=== PATIENT | female | born 1980 | race Caucasian/White ===

== ENCOUNTER 2017-03-27 10:32 | Emergency (ER) | payer OTHER ==
[~2017-03-27] VITALS: Ht 160 cm; Wt 75.0 kg
[2017-03-27 10:39] VITALS: TEMP 36.7; Ht 160 cm; Wt 75.0 kg
[2017-03-27] MEDS ORDERED: SODIUM CHLORIDE 0.9% 1000ML 1,000 ML IV STA (10:44)
--- NOTE | 2017-03-27 11:01 | EMERGENCY ROOM VISIT NOTE ---
History Report prepared by Arelis: Mirza Bhakta Under the Supervision of: Dr. Khalif Crowder M.D. First contact with patient: 10:44 Chief Complaint: SEIZURE Stated Complaint: POSSIBLE SEIZURE,BLACK OUT Nursing Triage Summary: last night had some alcohol and her friends that she was with thinks she had a sz and hit her elbow and wants checked out has headache History of Present Illness The patient is a 37 year old female who presents to the Emergency Room with complaints of a possible seizure that occurred last night. She rates her pain a 4/10 in severity. At this time, the patient was drinking alcohol with some of her friends when she hit her elbow on a chair. She notes that there was a lot of pain, so she sat down. Per her friend, the patient slumped back in her chair , her eyes began to "bounce" and her arms were hyperextended. After a couple of seconds she was back to normal. She denies any history of seizures in her past or her family.She denies any loss of consciousness. Source of History: patient Onset: last night Position: other (Global) Symptom Intensity: mild Quality: other (Possible seizure) Timing: resolved Associated Symptoms: No LOC Note: She is having some right elbow pain. Her seizure symptoms have resolved at this time. Review of Systems See HPI for pertinent positives & negatives. A total of 10 systems reviewed and were otherwise negative. Past Medical & Surgical Surgical Problems: (1) Previous section Family History Patient reports no known family medical history. Social History Smoking Status: Current Every Day Smoker Smokeless Tobacco Use: No Alcohol Use: occasionally Drug Use: none Marital Status: Housing Status: lives with family Occupation Status: employed Current/Historical Medications No Active Prescriptions or Reported Meds Allergies Coded Allergies: No Known Allergies (Verified , 03/27/17) Physical Exam Vital Signs Date Time Temp Pulse Resp B/P (MAP) Pulse Ox O2 Delivery O2 Flow Rate FiO2 03/27/17 12:03 65 18 119/87 99 03/27/17 11:14 Room Air 03/27/17 11:14 Room Air 03/27/17 11:05 64 03/27/17 10:39 36.7 77 18 126/83 99 Room Air Physical Exam GENERAL: Patient is a healthy-appearing well-nourished female HEAD: Normocephalic atraumatic EYES: Ocular movements intact pupils equal and react to light OROPHARYNX mucous membranes are moist no exudates present no erythema or edema present NECK: Supple no nuchal rigidity. No evidence of meningitis or encephalitis on exam. CHEST: Good equal expansion LUNGS: Clear and equal to auscultation CARDIAC: Normal S1 and S2 ABDOMEN: Soft nontender no guarding BACK: No CVA tenderness EXTREMITIES: No pain upon palpation normal muscle strength in all groups no clubbing cyanosis or edema. Good ROM of right elbow. NEURO: Patient is following commands and answering questions appropriately. Alert and oriented x3 Cranial Nerves 2-12 grossly intact Medical Decision & Procedures ER Provider Diagnostic Interpretation: Radiology results as stated below per my review and radiologist interpretation: HEAD CT NONCONTRAST CT DOSE: 537.48 mGy.cm HISTORY: Seizures Pt c/o seizure like activity TECHNIQUE: Multiaxial CT images of the head were performed without the use of intravenous contrast. Comparison: None. Findings: The paranasal sinuses and mastoid air cells are clear. The calvarium and skull base are intact. The ventricles and sulci are within normal limits. There is no mass, hematoma, midline shift, or acute infarct. Impression: No acute intracranial abnormality. Electronically signed by: Tanner Dumont M.D. 03/27/2017 11:43 AM Dictated Date/Time: 03/27/2017 11:42 AM Laboratory Results 03/27/17 11:10 Red Blood Count 4.72, Mean Corpuscular Volume 91.3, Mean Corpuscular Hemoglobin 31.1, Mean Corpuscular Hemoglobin Concent 34.1, Mean Platelet Volume 10.0, Neutrophils (%) (Auto) 58.2, Lymphocytes (%) (Auto) 29.6, Monocytes (%) (Auto) 10.6, Eosinophils (%) (Auto) 1.1, Basophils (%) (Auto) 0.1, Neutrophils # (Auto ) 4.65, Lymphocytes # (Auto) 2.37, Monocytes # (Auto) 0.85, Eosinophils # (Auto ) 0.09, Basophils # (Auto) 0.01 03/27/17 11:10 Test 03/27/17 11:10 03/27/17 11:12 03/27/17 11:30 White Blood Count 8.00 K/uL (4.8-10.8) Red Blood Count 4.72 M/uL (4.2-5.4) Hemoglobin 14.7 g/dL (12.0-16.0) Hematocrit 43.1 % (37-47) Mean Corpuscular Volume 91.3 fL (80-100) Mean Corpuscular Hemoglobin 31.1 pg (25-34) Mean Corpuscular Hemoglobin Concent 34.1 g/dl (32-36) Platelet Count 227 K/uL (130-400) Mean Platelet Volume 10.0 fL (7.4-10.4) Neutrophils (%) (Auto) 58.2 % Lymphocytes (%) (Auto) 29.6 % Monocytes (%) (Auto) 10.6 % Eosinophils (%) (Auto) 1.1 % Basophils (%) (Auto) 0.1 % Neutrophils # (Auto) 4.65 K/uL (1.4-6.5) Lymphocytes # (Auto) 2.37 K/uL (1.2-3.4) Monocytes # (Auto) 0.85 K/uL (0.11-0.59) Eosinophils # (Auto) 0.09 K/uL (0-0.5) Basophils # (Auto) 0.01 K/uL (0-0.2) RDW Standard Deviation 44.4 fL (36.4-46.3) RDW Coefficient of Variation 13.3 % (11.5-14.5) Immature Granulocyte % (Auto) 0.4 % Immature Granulocyte # (Auto) 0.03 K/uL (0.00-0.02) Prothrombin Time 10.6 SECONDS (9.0-12.0) Prothromb Time International Ratio 1.0 (0.9-1.1) Activated Partial Thromboplast Time 26.1 SECONDS (21.0-31.0) Partial Thromboplastin Ratio 1.0 Anion Gap 5.0 mmol/L (3-11) Est Creatinine Clear Calc Drug Dose 120.5 ml/min Estimated GFR () 133.5 Estimated GFR (Non- 115.2 BUN/Creatinine Ratio 14.9 (10-20) Calcium Level 8.7 mg/dl (8.5-10.1) Phosphorus Level 2.4 mg/dl (2.5-4.9) Magnesium Level 2.3 mg/dl (1.8-2.4) Thyroid Stimulating Hormone (TSH) 2.780 uIu/ml (0.300-4.500) Human Chorionic Gonadotropin, Qual NEG (NEG) Ethyl Alcohol mg/dL < 3.0 mg/dl (0-3) Bedside Glucose 81 mg/dl (70-90) Urine Color YELLOW Urine Appearance CLEAR (CLEAR) Urine pH 7.5 (4.5-7.5) Urine Specific [place] 1.018 (1.000-1.030) Urine Protein NEG (NEG) Urine Glucose (UA) NEG (NEG) Urine Ketones NEG (NEG) Urine Occult Blood NEG (NEG) Urine Nitrite NEG (NEG) Urine Bilirubin NEG (NEG) Urine Urobilinogen NEG (NEG) Urine Leukocyte Esterase NEG (NEG) Labs reviewed by ED physician. Medications Administered Medications (Trade) Dose Ordered Sig/Som Route Start Time Stop Time Status Last Admin Dose Admin Sodium Chloride 1,000 ml @ 999 mls/hr Q1H1M STAT IV 03/27/17 10:44 03/27/17 11:44 DC 03/27/17 11:16 999 MLS/HR ED Course 1044: Past medical records reviewed. The patient was evaluated in room C1. A complete history and physical examination was performed. Ordered Sodium Chloride 1000 ml @ 999 mls/hr IV. 1205: Upon reexamination the patient is resting. I discussed results and treatment plan with the patient. She verbalizes agreement and understanding. The patient is ready for discharge. Medical Decision Differential diagnosis: Etiologies such as infection, hypoglycemia, electrolyte abnormalities, cardiac sources, intracerebral event, trauma, toxicologic, neurologic, as well as others were entertained. Medication Reconciliation: I attest that I have personally reviewed the patient' s current medication list Blood pressure Screening: Patient was found to have a slightly elevated blood pressure due to circumstances. I do not believe that the patient requires hypertension monitoring. This is a 37-year-old female who presents emergency department complaining of what sounds like a vasovagal episode along with possible seizure last evening. The patient has no history of seizures in the past. She was drinking 2 glasses of wine last night however reports that she does not normally drink. She has a normal CAT scan of the head normal white blood cell count normal red blood cell count. I do feel that the patient most likely suffered from a vasovagal episode however I stressed the need for follow-up with neurology especially if the symptoms recur. The patient is going to increase her fluid intake for the next 48 hours and return if symptoms worsen. Patient was in agreement with the treatment plan. Impression Primary Impression: Syncopal episodes Scribe Attestation The scribe's documentation has been prepared under my direction and personally reviewed by me in its entirety. I confirm that the note above accurately reflects all work, treatment, procedures, and medical decision making performed by me. Departure Information Dispostion Home / Self-Care Prescriptions No Active Prescriptions or Reported Meds Referrals Reinaldo Simms M.D. (PCP) Robert Sales M.D. Forms HOME CARE DOCUMENTATION FORM, IMPORTANT VISIT INFORMATION, School Instructions, Work Instructions Patient Instructions My [facility] Additional Instructions You were found to have an elevated blood pressure today (>120 sytolic or >90 diastolic). Per medicare guidelines, you need to follow up with this blood pressure screening with your Primary Care Physician (PCP). For a new PCP call [phone]. You have been examined and treated today on an emergency basis only. This is not a substitute for, or an effort to provide, complete comprehensive medical care. It is impossible to recognize and treat all injuries or illnesses in a single emergency department visit. It is therefore important that you follow up closely with Dr Simms. Call as soon as possible for an appointment. Thank you for your time and consideration. I look forward to speaking with you again soon. Please don't hesitate to call us if you have any questions. Problem Qualifiers Primary Impression: Syncopal episodes Syncope type: unspecified Qualified Codes: R55 - Syncope and collapse
[2017-03-27 11:21] LABS: BASO % 0.1 %; BASO ABS # 0.01 K/uL (0-0.2); COMPLETE YES; EOS % 1.1 %; HEMATOCRIT 43.1 % (37-47); IG% 0.4 %; LYMPH % 29.6 %; LYMPH ABS # 2.37 K/uL (1.2-3.4); MEAN CELL VOLUME 91.3 fL (80-100); MEAN CORPUSCULAR HEMOGLOBIN 31.1 pg (25-34); MEAN CORPUSCULAR HGB CONC 34.1 g/dl (32-36); MONO % 10.6 %; NEUT % 58.2 %; PLATELET COUNT 227 K/uL (130-400); RED BLOOD COUNT 4.72 M/uL (4.2-5.4)
[2017-03-27 11:30] LABS: PROTHROMBIN TIME (PATIENT) 10.6 SECONDS (9.0-12.0)
[2017-03-27 11:41] LABS: URINE APPEARANCE CLEAR (CLEAR); URINE BILIRUBIN NEG (NEG); URINE COLOR YELLOW; URINE NITRITE NEG (NEG); URINE PH 7.5 (4.5-7.5); URINE SPECIFIC GRAVITY 1.018 (1.000-1.030); UROBILINOGEN NEG (NEG)
[2017-03-27 11:42] LABS: BUN/CREATININE RATIO 14.9 (10-20); CALCIUM 8.7 mg/dl (8.5-10.1); CREATININE 0.62 mg/dl (0.60-1.20); MAGNESIUM 2.3 mg/dl (1.8-2.4)
--- NOTE | 2017-03-27 11:44 | DIAGNOSTIC IMAGING REPORT ---
HEAD CT NONCONTRAST CT DOSE: 537.48 mGy.cm HISTORY: Seizures Pt c/o seizure like activity TECHNIQUE: Multiaxial CT images of the head were performed without the use of intravenous contrast. Comparison: None. Findings: The paranasal sinuses and mastoid air cells are clear. The calvarium and skull base are intact. The ventricles and sulci are within normal limits. There is no mass, hematoma, midline shift, or acute infarct. Impression: No acute intracranial abnormality. Electronically signed by: Tanner Dumont M.D. 03/27/2017 11:43 AM Dictated Date/Time: 03/27/2017 11:42 AM
[2017-03-27 11:47] LABS: MANUAL MICROSCOPIC REQUIRED? NO; REVIEW REQ? NO
[2017-03-27 11:47] LABS: PREG INTERNAL NEGATIVE QC NEG CLEAR BACKGROUND; PREG INTERNAL POSITIVE QC POS CONTROL LINE
[2017-03-27 11:53] LABS: PHOSPHORUS 2.4 mg/dl (2.5-4.9); THYROID STIMULATING HORMONE 2.78 uIu/ml (0.300-4.500)
[2017-03-27 12:03] VITALS: BP 119/87; PULSE 65; O2SAT 99
== END 2017-03-27 12:06 | disposition home or self-care (01) ==
LOC: C.EDB 10:34 → C.EDC 12:06
DX: R55 Syncope and collapse (principal); F17.210 Nicotine dependence, cigarettes, uncomplicated